=== PATIENT | male | born 1950 | race Caucasian/White ===

== ENCOUNTER 2019-05-29 01:14 | Outpatient (CLI) | payer MEDICARE, BC, SELFPAY | END 2019-05-29 01:34 | PROVIDERS: PCP Family Medicine; Visit Provider Family Medicine | DX: R69 Illness, unspecified (principal) | CPT/HCPCS: 36415; 80053; 80061; 83721; 84153; 85027 ==

== ENCOUNTER 2019-09-07 11:47 | Outpatient (CLI) | payer MEDICARE, BC, SELFPAY ==
[2019-09-07 09:40] LABS: HCT 45.1 % (40.0-50.0); HGB 15.6 g/dL (13.5-17.5); Mean Corp. HGB Concentration 34.6 g/dL (32.0-36.0); Mean Corpuscular Hemoglobin 33.5 pg (27.0-33.0); Mean Platelet Volume 9.3 fL (8.0-11.0); Platelet Count 223 x1000/uL (130-400); RBC 4.65 m/cumm (4.50-6.00); RBC Distribution Width 12.9 % (11.8-14.1); White Blood Cell Count 6.57 k/cumm (4.4-10.8)
[2019-09-07 10:27] LABS: ALT 26 U/L (16-63); AST 22 U/L (15-37); Albumin 3.9 g/dL (3.4-5.0); Alkaline Phosphatase 77 U/L (46-116); Anion Gap 9.2 mmol/L (3-11); BUN 10 mg/dL (7-18); Bilirubin, Total 0.6 mg/dL (0.2-1.0); CO2 28.8 mmol/L (21.0-32.0); CREATININE 0.92 mg/dL (0.70-1.30); Calcium 9.1 mg/dL (8.5-10.1); Calculated LDL 119 mg/dL; Chloride 102 mmol/L (98-107); Cholesterol 207 mg/dL (50-200); Glucose 99 mg/dL (70-100); HDL Cholesterol 58 mg/dL (40-60); Potassium 4.5 mmol/L (3.5-5.1); Sodium 140 mmol/L (136-145); Total Protein 7.7 g/dL (6.4-8.2); Triglyceride 153 mg/dL (30-150)
[2019-09-09 11:34] LABS: PSA, Screening 1.6 ng/ml (0-6.5)
== END 2019-09-07 12:07 ==
PROVIDERS: PCP Family Medicine; Visit Provider Family Medicine
DX: R03.0 Elevated blood-pressure reading, without diagnosis of hypertension (principal); Z12.5 Encounter for screening for malignant neoplasm of prostate; E78.89 Other lipoprotein metabolism disorders
CPT/HCPCS: 36415; 80053; 80061; 84153; 85027

== ENCOUNTER → 2020-05-25 13:00 | Outpatient (BNVA) | payer MEDICARE, BC, SELFPAY | PROVIDERS: PCP Family Medicine; Referring Provider Family Medicine; Visit Provider Nurse Practitioner Gerontology | DX: N40.0 Benign prostatic hyperplasia without lower urinary tract symptoms (principal) | CPT/HCPCS: 99204 ==

== ENCOUNTER 2020-05-25 13:45 | Outpatient (CLI) | payer MEDICARE, BC, SELFPAY ==
[2020-05-26 09:44] LABS: PSA, Screening 1.7 ng/mL (0.0-6.5)
== END 2020-05-25 14:05 ==
PROVIDERS: PCP Family Medicine; Visit Provider Nurse Practitioner Gerontology
DX: N40.0 Benign prostatic hyperplasia without lower urinary tract symptoms (principal); Z12.5 Encounter for screening for malignant neoplasm of prostate
CPT/HCPCS: 84153

== ENCOUNTER 2020-06-26 08:42 | Outpatient (CLI) | payer MEDICARE, BC, SELFPAY ==
[2020-06-29 17:42] LABS: SARS-CoV-2 RNA Undetected (Undetected); SARS-CoV-2 Specimen Source Nasopharynx
== END 2020-06-26 09:02 ==
PROVIDERS: PCP Family Medicine; Visit Provider Family Medicine
DX: Z11.59 Encounter for screening for other viral diseases (principal)
CPT/HCPCS: U0003

== ENCOUNTER → 2020-11-04 08:38 | Outpatient (BNVA) | payer MEDICARE, BC, SELFPAY | PROVIDERS: PCP Family Medicine; Referring Provider Family Medicine; Visit Provider Nurse Practitioner Gerontology | DX: N40.0 Benign prostatic hyperplasia without lower urinary tract symptoms (principal) | CPT/HCPCS: 99213 ==

== ENCOUNTER 2021-05-04 03:32 | Outpatient (CLI) | payer MEDICARE, BC, SELFPAY ==
[2021-05-04 13:27] LABS: ALT 27 U/L (16-63); AST 23 U/L (15-37); Albumin 3.5 g/dL (3.4-5.0); Alkaline Phosphatase 75 U/L (46-116); Anion Gap 11.8 mmol/L (3-11); BUN 9 mg/dL (7-18); Bilirubin, Total 0.4 mg/dL (0.2-1.0); CO2 24.2 mmol/L (21.0-32.0); CREATININE 0.8 mg/dL (0.70-1.30); Calcium 8.7 mg/dL (8.5-10.1); Chloride 104 mmol/L (98-107); Glucose 92 mg/dL (74-106); Potassium 4.2 mmol/L (3.5-5.1); Sodium 140 mmol/L (136-145); Total Protein 6.8 g/dL (6.4-8.2)
[2021-05-04 22:43] LABS: PSA, Screening 1.6 ng/mL (0.0-6.5)
== END 2021-05-04 03:33 | disposition home or self-care (01) ==
LOC: LOS 03:32
DX: N40.0 Benign prostatic hyperplasia without lower urinary tract symptoms (principal); Z12.5 Encounter for screening for malignant neoplasm of prostate; I10 Essential (primary) hypertension
CPT/HCPCS: 36415; 80053; 84153

== ENCOUNTER → 2021-05-10 09:22 | Outpatient (BNVA) | payer MEDICARE, BC, SELFPAY | PROVIDERS: Visit Provider Nurse Practitioner Gerontology | DX: N40.0 Benign prostatic hyperplasia without lower urinary tract symptoms (principal) | CPT/HCPCS: 99213 ==

== ENCOUNTER 2021-07-23 09:26 | Outpatient (CLI) | payer MEDICARE, BC, SELFPAY ==
--- NOTE | 2021-07-23 09:00 | DI.RAD_ITS ---
Exam(s) XR KNEE LT 3V AP,LAT,IRIS EXAM: XR KNEE LT 3V AP,LAT,IRIS CLINICAL HISTORY: knee pain TECHNIQUE: COMPARISON: CR LEFT KNEE 3 VIEW COMPLETE from 09/26/2012 FINDINGS: Four views were obtained. There is severe loss of the cartilaginous joint space of the medial tibiof emoral joint with subchondral sclerosis and deformity of the adjacent bones. There is mild medial abdalla bluxation the femur on the tibia. Otherwise cartilaginous joint spaces appear fairly well maintained. There are moderate marginal oste ophytes multiple sites. There is an incidental bipartite patella. There appears to be a moderate-si zed knee joint effusion. IMPRESSION: Severe DJD predominantly involving medial tibiofemoral joint. RADIATION DOSE DELIVERED: Total DLP
--- NOTE | 2021-07-23 09:00 | DI.RAD_ITS ---
Exam(s) XR KNEE RT 3V AP,LAT,IRIS EXAM: XR KNEE RT 3V AP,LAT,IRIS CLINICAL HISTORY: knee pain TECHNIQUE: COMPARISON: CR XR KNEE LT 3V AP,LAT,IRIS from 07/23/2021 FINDINGS: Four views were obtained. There is severe narrowing of the cartilaginous joint space of the medial t ibiofemoral joint with medial femoral subluxation and mild varus angulation of the knee. There is mi ld subchondral sclerosis of the adjacent bones at this site. There are mild marginal osteophytes of all 3 joints of the knee. There is a small knee joint effusio n seen on the lateral view. IMPRESSION: Severe DJD predominantly involving medial tibiofemoral joint. RADIATION DOSE DELIVERED: Total DLP
== END 2021-07-23 09:27 | disposition home or self-care (01) ==
LOC: DIORS 09:26
PROVIDERS: Visit Provider Student in an Organized Health Care Education/Training Program
DX: M17.11 Unilateral primary osteoarthritis, right knee; M17.12 Unilateral primary osteoarthritis, left knee; M25.561 Pain in right knee; M25.562 Pain in left knee
CPT/HCPCS: 73562; 99215

== ENCOUNTER 2021-11-09 03:05 | Outpatient (CLI) | payer MEDICARE, BC, SELFPAY ==
[2021-11-09 11:29] LABS: ALT 28 U/L (16-63); AST 24 U/L (15-37); Albumin 3.7 g/dL (3.4-5.0); Alkaline Phosphatase 72 U/L (46-116); Anion Gap 6.1 mmol/L (3-11); BUN 12 mg/dL (7-18); Bilirubin, Total 0.7 mg/dL (0.2-1.0); CO2 29.9 mmol/L (21.0-32.0); CREATININE 0.8 mg/dL (0.70-1.30); Calcium 9.3 mg/dL (8.5-10.1); Calculated LDL 117 mg/dL (<100); Chloride 100 mmol/L (98-107); Cholesterol 204 mg/dL (<200); Glucose 95 mg/dL (74-106); HDL Cholesterol 74 mg/dL (40-60); Potassium 4.7 mmol/L (3.5-5.1); Sodium 136 mmol/L (136-145); Total Protein 7.1 g/dL (6.4-8.2); Triglyceride 68 mg/dL (<150)
[2021-11-09 18:53] LABS: PSA, Screening 1.9 ng/mL (0.0-6.5)
== END 2021-11-09 03:06 | disposition home or self-care (01) ==
LOC: LBO 03:05
PROVIDERS: Nurse Practitioner Gerontology
DX: E78.2 Mixed hyperlipidemia (principal); R03.0 Elevated blood-pressure reading, without diagnosis of hypertension; N40.0 Benign prostatic hyperplasia without lower urinary tract symptoms; Z12.5 Encounter for screening for malignant neoplasm of prostate
CPT/HCPCS: 36415; 80053; 80061; 84153

== ENCOUNTER → 2021-11-11 10:16 | Outpatient (BNVA) | payer MEDICARE, BC, SELFPAY | PROVIDERS: Visit Provider Nurse Practitioner Gerontology | DX: N40.0 Benign prostatic hyperplasia without lower urinary tract symptoms (principal) | CPT/HCPCS: 99213 ==

== ENCOUNTER 2022-05-05 02:17 | Outpatient (CLI) | payer MEDICARE, BC, SELFPAY ==
[2022-05-05 22:58] LABS: PSA, Screening 1.8 ng/mL (<=6.5)
== END 2022-05-05 02:18 | disposition home or self-care (01) ==
LOC: LBO 02:17
PROVIDERS: Visit Provider Nurse Practitioner Gerontology
DX: N40.0 Benign prostatic hyperplasia without lower urinary tract symptoms (principal); Z12.5 Encounter for screening for malignant neoplasm of prostate
CPT/HCPCS: 36415; 84153

== ENCOUNTER → 2022-05-12 10:35 | Outpatient (BNVA) | payer MEDICARE, BC, SELFPAY | PROVIDERS: Visit Provider Nurse Practitioner Gerontology | DX: N40.0 Benign prostatic hyperplasia without lower urinary tract symptoms (principal); N42.89 Other specified disorders of prostate | CPT/HCPCS: 99213 ==

== ENCOUNTER 2022-11-08 02:04 | Outpatient (CLI) | payer MEDICARE, BC, SELFPAY ==
[2022-11-08 19:15] LABS: PSA, Screening 1.9 ng/mL (<=6.5)
== END 2022-11-08 02:05 | disposition home or self-care (01) ==
LOC: LBO 02:04
PROVIDERS: PCP Nurse Practitioner Family; Visit Provider Nurse Practitioner Gerontology
DX: N40.0 Benign prostatic hyperplasia without lower urinary tract symptoms (principal); N42.89 Other specified disorders of prostate; Z12.5 Encounter for screening for malignant neoplasm of prostate
CPT/HCPCS: 36415; 84153

== ENCOUNTER → 2022-11-15 10:28 | Outpatient (BNVA) | payer MEDICARE, BC, SELFPAY | PROVIDERS: PCP Nurse Practitioner Family; Referring Provider Nurse Practitioner Family; Visit Provider Nurse Practitioner Gerontology | DX: N40.0 Benign prostatic hyperplasia without lower urinary tract symptoms (principal) | CPT/HCPCS: 99213 ==

== ENCOUNTER 2023-05-11 01:11 | Outpatient (CLI) | payer MEDICARE, BC, SELFPAY ==
[2023-05-11 22:12] LABS: PSA, Screening 1.9 ng/mL (<=6.5)
== END 2023-05-11 01:12 | disposition home or self-care (01) ==
LOC: LBO 01:11
PROVIDERS: PCP Nurse Practitioner Family; Visit Provider Nurse Practitioner Gerontology
DX: N40.0 Benign prostatic hyperplasia without lower urinary tract symptoms (principal); Z12.5 Encounter for screening for malignant neoplasm of prostate
CPT/HCPCS: 36415; 84153

== ENCOUNTER → 2023-06-05 13:36 | Outpatient (BNVA) | payer MEDICARE, BC, SELFPAY | PROVIDERS: PCP Nurse Practitioner Family; Referring Provider Nurse Practitioner Family; Visit Provider Nurse Practitioner Gerontology | DX: N40.0 Benign prostatic hyperplasia without lower urinary tract symptoms (principal) | CPT/HCPCS: 99213 ==

== ENCOUNTER 2023-12-04 04:40 | Outpatient (CLI) | payer MEDICARE, BC, SELFPAY ==
[2023-12-04 08:37] LABS: Anion Gap 2.6 mmol/L (3-11); BUN 13 mg/dL (7-18); CO2 29.4 mmol/L (21.0-32.0); CREATININE 0.8 mg/dL (0.70-1.30); Chloride 100 mmol/L (98-107); Estimated GFR 92.29 (mL/min/1.73m2); Glucose 101 mg/dL (74-106); Potassium 4.3 mmol/L (3.5-5.1); Sodium 132 mmol/L (136-145)
[2023-12-04 17:56] LABS: PSA, Diagnostic 2.3 ng/mL (<=6.5)
== END 2023-12-04 04:41 | disposition home or self-care (01) ==
LOC: LBO 04:40
PROVIDERS: PCP Nurse Practitioner Family; Visit Provider Nurse Practitioner Gerontology
DX: N40.0 Benign prostatic hyperplasia without lower urinary tract symptoms (principal); R79.89 Other specified abnormal findings of blood chemistry; Z13.1 Encounter for screening for diabetes mellitus
CPT/HCPCS: 36415; 80048; 84153

== ENCOUNTER → 2023-12-07 02:30 | Outpatient (CLI) | payer MEDICARE, BC, SELFPAY ==
--- NOTE | 2023-12-07 12:43 | DI.US_ITS ---
Exam(s) US AAA SCREENING EXAM: US AAA SCREENING CLINICAL HISTORY: 5 year pack history SMOKER, SCREENING FOR AAA,Z87.891 COMPARISON: No exams were available for comparison FINDINGS: Abdominal Aorta: Proximal: 2.6 x 2.3 cm Mid: 2.1 x 2.3 cm Distal: 2.1 x 2.3 cm Iliac's: Right: 1.3 x 1.5 cm Left: 1.2 x 1.4 cm Atherosclerosis is present. IMPRESSION: No evidence of abdominal aortic aneurysm. DATA REPOSITORY:
== END ==
PROVIDERS: PCP Nurse Practitioner Family; Visit Provider Nurse Practitioner Family
DX: Z13.6 Encounter for screening for cardiovascular disorders (principal); Z87.891 Personal history of nicotine dependence
CPT/HCPCS: 76706

== ENCOUNTER → 2023-12-21 14:50 | Outpatient (BNVA) | payer MEDICARE, BC, SELFPAY | PROVIDERS: PCP Nurse Practitioner Family; Visit Provider Nurse Practitioner Gerontology | DX: N40.0 Benign prostatic hyperplasia without lower urinary tract symptoms (principal); R68.89 Other general symptoms and signs | CPT/HCPCS: 51798; 99213 ==

== ENCOUNTER → 2024-02-07 12:59 | Outpatient (CLI) | payer MEDICARE, BC, SELFPAY ==
--- NOTE | 2024-02-07 | DI.RAD_ITS ---
Exam(s) XR SHOULDER RT COMPLETE 2+V EXAM: XR SHOULDER RT COMPLETE 2+V CLINICAL HISTORY: PAIN IN RT SHOULDER-M25.511. TECHNIQUE: 2D digital imaging was performed of the right shoulder. Five images were obtained. AP, Grashey, Y-view and axillary views were obtained. COMPARISON: No exams were available for comparison FINDINGS: BONES: No acute fracture is present. No bony destructive lesion is seen. JOINTS: No dislocation present. There are mild degenerative changes seen at the glenohumeral joint. SOFT TISSUE: The visualized lungs are clear. IMPRESSION: Degenerative changes seen in the right shoulder. DATA REPOSITORY: RADIATION DOSE DELIVERED:
== END ==
PROVIDERS: PCP Nurse Practitioner Family; Visit Provider Physician Assistant Medical
DX: M25.511 Pain in right shoulder (principal)
CPT/HCPCS: 73030

== ENCOUNTER 2024-05-27 10:57 | Outpatient (CLI) | payer MEDICARE, BC, SELFPAY ==
--- NOTE | 2024-05-27 09:00 | DI.RAD_ITS ---
Exam(s) XR KNEE LT 1V XR STANDING ALIGNMENT XR KNEE RT 1V EXAM: XR STANDING ALIGNMENT and XR knee 1 V bilateral CLINICAL HISTORY: TKR planning. TECHNIQUE: 2D digital imaging was performed. Six images were obtained. COMPARISON: CR XR KNEE RT 3V AP,LAT,IRIS from 07/23/2021 CR XR KNEE LT 3V AP,LAT,IRIS from 07/23/2021 CR XR KNEE RT 1V from 05/27/2024 CR XR KNEE LT 1V from 05/27/2024 FINDINGS: BONES: The hips are well maintained. In the right knee there is marked narrowing of the medial femor al tibial joint. Osteophytes are seen both medially and laterally and in the posterior patella. No significant joint effusion is seen. There is chondrocalcinosis in the femoral tibial joint. In the left knee, there is marked narrowing of the medial femoral tibial joint. There osteophytes involving all 3 joint compartments. There is chondrocalcinosis seen in the femoral tibial joint. There is a small joint effusion. There is a genu varus deformity. The ankles are well maintained.There is no s ignificant leg length discrepancy. SOFT TISSUE: Vascular calcifications are present. IMPRESSION: Marked degenerative changes seen in the knees. DATA REPOSITORY: RADIATION DOSE DELIVERED:
== END 2024-05-27 10:58 | disposition home or self-care (01) ==
LOC: DIORS 10:57
PROVIDERS: PCP Nurse Practitioner Family; Referring Provider Nurse Practitioner Family; Visit Provider Student in an Organized Health Care Education/Training Program
DX: M17.12 Unilateral primary osteoarthritis, left knee; M17.11 Unilateral primary osteoarthritis, right knee
CPT/HCPCS: 99213; 73560; 77073

== ENCOUNTER 2024-06-13 02:40 | Outpatient (CLI) | payer MEDICARE, BC, SELFPAY ==
[2024-06-13 19:01] LABS: PSA, Diagnostic 2.2 ng/mL (<=6.5)
== END 2024-06-13 02:41 | disposition home or self-care (01) ==
LOC: LOS 02:40
PROVIDERS: PCP Nurse Practitioner Family; Visit Provider Nurse Practitioner Gerontology
DX: N40.0 Benign prostatic hyperplasia without lower urinary tract symptoms (principal); R68.89 Other general symptoms and signs
CPT/HCPCS: 36415; 84153

== ENCOUNTER 2024-09-05 03:04 | Outpatient (CLI) | payer MEDICARE, BC, SELFPAY ==
[2024-09-05 11:21] LABS: HCT 42.3 % (40.0-50.0); HGB 14.5 g/dL (13.5-17.5); MCHC 34.3 % (32.0-36.0); MCV 96 fL (80-95); MPV 8.8 fL (8.0-11.0); Platelet Count 273 10^3/uL (130-400); RBC 4.39 10^6/uL (4.36-5.78); RDW 12.5 % (11.8-14.1); RDW-SD 44.6 fL; WBC 6.05 10^3/uL (4.4-10.8)
[2024-09-05 11:48] LABS: Anion Gap 7.7 mmol/L (3-11); BUN 13 mg/dL (7-18); CO2 27.3 mmol/L (21.0-32.0); CREATININE 0.8 mg/dL (0.70-1.30); Calcium 9.5 mg/dL (8.5-10.1); Chloride 104 mmol/L (98-107); Estimated GFR 92.29 (mL/min/1.73m2); Glucose 100 mg/dL (74-106); Potassium 4.3 mmol/L (3.5-5.1); Sodium 139 mmol/L (136-145)
== END 2024-09-05 03:05 | disposition home or self-care (01) ==
LOC: LBO 03:04
PROVIDERS: PCP Nurse Practitioner Family; Visit Provider Student in an Organized Health Care Education/Training Program
DX: M17.12 Unilateral primary osteoarthritis, left knee (principal); Z01.818 Encounter for other preprocedural examination
CPT/HCPCS: 36415; 80048; 85027

== ENCOUNTER 2024-09-18 09:54 | Day surgery (SDC) | payer MEDICARE, BC, SELFPAY ==
[2024-09-18] VITALS (22 sets, daily range): BP systolic 144–187; BP diastolic 57–162; PULSE 58–76; RESP 12–20; TEMP 36–36.5; O2SAT 97–100; BMI 23.6
--- NOTE | 2024-09-18 07:35 | W.PM.DSUDISC ---
Date of service: 09/18/24 Time of Service: 07:35 Discharge Plan Disposition Patient Disposition: Home Condition: Good Discharge Details Reason For Visit: L TKR Attending Provider: Molina Colin Primary Care Provider: Amari Chambers Home Meds and New Rx's Prescriptions: New celecoxib 200 mg capsule 200 mg PO BID Qty: 60 0RF aspirin 81 mg tablet,delayed release (DR/EC) 81 mg PO BID Qty: 60 0RF acetaminophen 500 mg tablet 1,000 mg PO TID Qty: 90 3RF pantoprazole 40 mg tablet,delayed release (DR/EC) 40 mg PO DAILY Qty: 30 0RF dexamethasone 4 mg tablet 4 mg PO DAILY Qty: 2 0RF gabapentin 300 mg capsule 300 mg PO QHS Qty: 14 0RF oxycodone 5 mg tablet 5 mg PO Q4H MDD 6 tabs PRN (Reason: pain) Qty: 20 0RF Discontinued ibuprofen [Advil] 200 mg tablet 200 mg PO Q8H PRN Discharge Instructions Additional Instructions: Total Knee Discharge Instructions Activity: The most important activity is to walk and to work on gentle motion (both flexion and extension). You should try to take short walks a few times a day. It is important that when resting you work on keeping the knee straight. Avoid putting a pillow behind the knee as this will encourage flexion. Work on range of motion exercises as provided by Physical Therapy. - Start outpatient physical therapy within 2 weeks. - You should wear the AVELINO hose on both legs for 2 weeks. You may remove these at night. You may also use any compression sock in place of the AVELINO hose. - Utilize [employer] to review exercises, see videos on exercises and obtain basic information pertaining to your surgery and your recovery. Dressing: Remove the Yan wrap by 2 days after your surgery and put on the AVELINO stocking given to you from the hospital. Keep the surgical dressing (underneath the YAN wrap) in place for at least one week. After the first week it may be removed and replaced with light gauze and tape or nothing. The wound and dressing may get wet after 3 days but avoid soaking the dressing or otherwise it will need to be changed. Many people prefer covering the dressing with cling wrap (saran wrap) to minimize it from getting soaked. If it gets wet, just pat dry. If it starts to peel off then it will need to be changed. Medications: - You should take Tylenol and anti-inflammatory Celebrex as your primary pain control medications. If the Celebrex is too expensive or not covered, please call the office for another alternative (Advil/Ibuprofen or Naproxen/Aleve) - You have been prescribed a stronger pain medication Oxycodone for breakthrough pain, take as needed as prescribed. - You have also been prescribed a stomach acid reduction agent Pantoprozole to help reduce stomach acid and reflux. - You have been prescribed Gabapentin to take at night for restlessness and nerve pain. - You will be taking Aspirin 81mg twice a day for DVT prevention unless instructed otherwise. - You have also been prescribed Decadron to take to control post-operative nausea and pain. You will start this tomorrow. - If you have constipation you should take Colace or Miralax (both [id number]). It takes most people 3-4 days to have a bowel movement. Follow-up: 2 weeks If you have any acute concerns or questions, please do not hesitate to contact the office at [phone]. You may contact Dr. Colin with any questions after hours through the hospital at [phone] or on his cell phone at [phone]. Referrals: Molina Colin MD [ [facility] ST[facility]FF PHYSICIAN] - Equipment/Supplies: Walker Activity:: Activity as Tolerated Shower/Bathe:: 72 hours Diet:: As Tolerated Discharge Orders Discharge Orders: Discharge Order (Routine); Ordered 09/18/24 Ordered By: Quincy Méndez DS: Diagnosis Discharge Diagnosis (1) Osteoarthritis of left knee: Status: Acute
[2024-09-18] MEDS: Lactated Ringers 1,000 ML 80 ML IV (10:34)
[2024-09-18] MEDS: Acetaminophen 500 MG TAB 1000 MG PO (10:52)
[2024-09-18] MEDS: Gabapentin 300 MG CAP PO (10:52)
[2024-09-18] MEDS: Celecoxib 200 MG CAP 400 MG PO (10:52)
--- NOTE | 2024-09-18 11:01 | W.ANESPRE ---
General Info Date of Service Date Performed: 09/18/24 Height: 5 ft 7 in Weight: 68.5 kg Body Mass Index (BMI): 23.6 Surgical Procedure: Operation Date: 09/18/24 12:55 Proposed Procedure Side Surgeon p Knee Total Arthroplasty w/OrthAlign, Cementless CR Left Molina Colin MD Meds Allergies and Home Medications Allergies Allergy/AdvReac Type Severity Reaction Status Date / Time No Known Allergies Allergy Verified 09/18/24 10:49 Home Medication ?Medication ?Instructions ?Recorded acetaminophen 500 mg tablet 1,000 mg (2 x 500 mg) PO TID #90 09/18/24 tabs aspirin 81 mg tablet,delayed 81 mg PO BID #60 tabs 09/18/24 release celecoxib 200 mg capsule 200 mg PO BID #60 caps 09/18/24 dexamethasone 4 mg tablet 4 mg PO DAILY #2 tabs 09/18/24 gabapentin 300 mg capsule 300 mg PO QHS #14 caps 09/18/24 oxycodone 5 mg tablet 5 mg PO Q4H PRN pain #20 tabs 09/18/24 pantoprazole 40 mg tablet,delayed 40 mg PO DAILY #30 tabs 09/18/24 release Current Visit Medications: Current Medications Generic Name Dose Route Start Last Admin Trade Name Freq PRN Reason Stop Dose Admin Acetaminophen 1,000 mg 09/18/24 06:00 09/18/24 10:52 Acetaminophen 500 Mg Tab PO 09/18/24 23:59 1,000 mg PREOP SONYA Administration Acetaminophen 1,000 mg 09/18/24 07:34 Acetaminophen 500 Mg Tab PO 10/18/24 08:29 TID PRN Analgesia Celecoxib 400 mg 09/18/24 06:00 09/18/24 10:52 Celecoxib 200 Mg Cap PO 09/18/24 23:59 400 mg PREOP SONYA Administration Docusate Sodium 100 mg 09/18/24 07:34 Docusate Sodium 100 Mg Cap PO 10/18/24 07:33 BID PRN PRN Constipation Droperidol 0.625 mg 09/18/24 08:58 Droperidol 5 Mg/2 Ml Vial IVP 10/18/24 08:57 DIRECTED PRN Nausea Ephedrine Sulfate 0 mg 09/18/24 08:58 Ephedrine 25 Mg/5 Ml Syringe IVP 10/18/24 08:57 DIRECTED PRN Fentanyl 0 mcg 10/23/24 08:58 Fentanyl 100 Mcg/2 Ml Vial IVP 10/18/24 08:57 DIRECTED PRN Gabapentin 300 mg 09/18/24 06:00 09/18/24 10:52 Gabapentin 300 Mg Cap PO 09/18/24 23:59 300 mg PREOP SONYA Administration Hydromorphone HCl 0 mg 09/18/24 08:58 Hydromorphone 1 Mg/Ml Syr IVP 10/18/24 08:57 DIRECTED PRN Ringer's Solution 1,000 mls @ 80 mls/hr 09/18/24 06:00 09/18/24 10:34 IV 09/18/24 23:59 80 mls/hr INFUSION OSNYA Administration Tranexamic Acid/Sodium Chloride 1,000 mg in 100 mls @ 600 mls/hr 09/18/24 10:45 IVPB 10/18/24 10:44 PREOP SONYA Cefazolin Sodium/Dextrose 2 gm in 50 mls @ 100 mls/hr 09/18/24 10:45 Ancef Duplex IVPB 10/18/24 10:44 PREOP SNOYA IV Miscellaneous Supplies 1 each 09/18/24 06:00 Iv Access IV 09/18/24 23:59 DIRECTED SONYA Naloxone HCl 0 mg 09/18/24 08:58 Naloxone 0.4 Mg/Ml Vial IVP 10/18/24 08:57 PRN PRN Ondansetron HCl 4 mg 09/18/24 07:34 Ondansetron 4 Mg/2 Ml Vial IVP 10/18/24 07:33 Q6H PRN PRN Nausea Oxycodone HCl 0 mg 09/18/24 07:34 Oxycodone 5 Mg Tab PO 10/18/24 07:33 Q3H PRN PRN Pain Polyethylene Glycol 17 gm 09/18/24 07:34 Polyethylene Glycol 3350 17 Gm Packet PO 10/18/24 07:33 BID PRN PRN Constipation Sodium Chloride 0 ml 09/18/24 06:00 Normal Saline Flush 10 Ml Syr IV 09/18/24 23:59 PRN PRN Sodium Chloride 0 ml 09/18/24 06:00 Normal Saline 10 Ml Vial IJ 09/18/24 23:59 DIRECTED PRN Sterile Water 0 ml 09/18/24 06:00 Water,Injection,Sterile 10 Ml Vial IJ 09/18/24 23:59 DIRECTED PRN PFSH Active Problems Active Problems: Problem Status Onset Code History of total left knee replacement Acute 09/18/24 Z96.652 Abnormal digital rectal exam Acute R68.89 Osteoarthritis of right knee Acute M17.11 Encounter for annual physical exam Acute Z00.00 BPH w/o urinary obs/LUTS Acute N40.0 Acquired trigger finger Acute 10/26/06 M65.30 Medical History Medical History Elevated BP without diagnosis of hypertension Osteoarthritis of knee Generalized osteoarthrosis (10/26/09) mild DJD left knee Malignant neoplasm of skin Surgical History Surgical History History of bilateral inguinal hernia repair History of skin surgery Skin Cancer Removal (~1995) Harish's surgery for BCCA Repair of inguinal hernia (~2006) B/L Colonoscopy - MAC 2010;NEG Tobacco Smoking/Tobacco Use Status: Former Tobacco Use Passive smoking exposure: No Second hand exposure: Yes Alcohol Alcohol Intake: current Alcohol intake frequency: a few times a week Alcohol type: beer Substance Use Substance use: Never Substance use type: former substance user Vital Signs and Lab Results Vital Signs Most Recent Vital Signs in EMR: Most Recent Vital Signs Temp Pulse Resp BP Pulse Ox 36 C L 62 16 182/85 H 98 09/18/24 10:36 09/18/24 10:36 09/18/24 10:36 09/18/24 10:36 09/18/24 10:36 Lab Results Blood Type / Crossmatch: No Data to Display Complete Blood Count: White Blood Count 6.05 10^3/uL (4.4-10.8) 09/05/24 11:14 Red Blood Count 4.39 10^6/uL (4.36-5.78) 09/05/24 11:14 Hemoglobin 14.5 g/dL (13.5-17.5) 09/05/24 11:14 Hematocrit 42.3 % (40.0-50.0) 09/05/24 11:14 Platelet Count 273 10^3/uL (130-400) 09/05/24 11:14 Complete Metabolic Panel: Sodium 139 mmol/L (136-145) 09/05/24 11:14 Potassium 4.3 mmol/L (3.5-5.1) 09/05/24 11:14 Chloride 104 mmol/L (98-107) 09/05/24 11:14 Carbon Dioxide 27.3 mmol/L (21.0-32.0) 09/05/24 11:14 BUN 13 mg/dL (7-18) 09/05/24 11:14 Creatinine 0.8 mg/dL (0.70-1.30) 09/05/24 11:14 Est GFR (CKD-EPI 2020) 92.29 (mL/min/1.73m2) 09/05/24 11:14 Calcium 9.5 mg/dL (8.5-10.1) 09/05/24 11:14 Glucose 100 mg/dL (74-106) 09/05/24 11:14 Liver Function Panel: No Data to Display Coagulation Panel: No Data to Display Cardiac Panel: No Data to Display Arterial Blood Gas: No Data to Display Venous Blood Gas: No Data to Display Pancreas Panel: No Data to Display Thyroid Panel: No Data to Display Infectious Disease: No Data to Display Blood Cultures: No Data to Display Toxicology Panel: No Data to Display Anesthesia Assessment and Plan Anesthesia History Personal History: No History of Anesthesia Complications Family History: No Family History of Anesthesia Complications Exercise Tolerance Exercise Tolerance: Metabolic Equivalents>4 Pertinent Negatives Pertinent Negatives: No Symptoms of GERD, No Major Cardiovascular Symptoms or Complaints, No Major Pulmonary Symptoms or Complaints and No History of CVA/TIA Cardiac & Pulmonary Exam Cardiac Exam: Normal S1/S2 Heart Sounds Pulmonary Exam: Clear Bilateral Breath Sounds Implantable Cardiac Device Does patient have a Pacemaker or an ICD?: No Airway Exam Known Difficult Airway: No Mallampati Class: 2 Mouth Opening: Normal (> 3cm) Thyromental Distance: Greater than 3 cm Neck Range of Motion: Full ROM Neck Circumference: Normal Teeth Condition: Normal Dentition ASA Classification ASA Score: ASA 2 Emergency Case?: No NPO Status NPO Status: NPO Clears >2 hours, Solids >8 hours Anesthesia Plan Resuscitation Status: Full Code Anesthesia Technique: Spinal Anesthesia Airway Planned: Natural Airway Pain Management: Surgeon and patient request nerve block Monitors Used: Standard Monitors and SedLine Preoperative Comments:: Plan: Left adductor canal block, spinal anesthetic, general w/ natural airway. Adequate IV access, sedline
[2024-09-18] MEDS: ceFAZolin 2 GM/50 ML BAG IVPB (12:24)
[2024-09-18] MEDS: TRANEXAMIC ACID/SOD. CHL. 1,000 MG/100 ML BAG 600 MG IVPB (12:33)
--- NOTE | 2024-09-18 12:48 | W.ANESNERVE ---
Nerve Block Single Injection Procedure Date and Time Date Performed: 09/18/24 Procedure Start: 12:05 Location Where Procedure Performed Procedure Location: Day Surgery Unit Reason Performed: Postoperative Analgesia Requesting Provider: Molina Colin Timeout Performed Timeout Performed: Yes Monitoring Used ECG, Blood Pressure, SpO2, ETCO2 and See EMR for corresponding vital signs Sterility Sterility: Hand Hygiene, Surgical Cap, Surgical Mask, Sterile Gloves, Sterile Drape/Sheet, Eye Protection and Chlorhexidine Sedation Given During Procedure Sedation Given (Indicate Dose Given): No Sedation given Patient Mental Status Patient Mental Status: Awake Nerve Block 1st Nerve Block: Laterality: Left Block Type: Adductor Canal Ultrasound Image Saved?: Yes Needle / Catheter Used: 100mm SonoPlex II Local Anesthetic Bolus (Indicate Dose Given): Lidocaine used for local infiltration of skin, Injected in 3-5ml increments after negative blood aspiration and Bupivacaine 0.25% Dose:: 10ml Additives (Indicate Dose Given): None Ultrasound: Sterile probe cover and gel used Nerve Stimulator: Supplement to Ultrasound use and No twitch or parasthesia noted < 0.5 mA Paresthesia: None Procedure Tolerated: No Complications and Patient tolerated well Procedure Outcome: Successful Performed By: Viral Moreno Supervised By: Patti Larson
--- NOTE | 2024-09-18 15:16 | W.ANESPOSTOP ---
Postoperative Evaluation Date, Time and Location Date Performed: 09/18/24 Time Performed: 14:45 Patient Location: PACU Vital Signs Most Recent Imported Vital Signs: Most Recent Vital Signs Temp Pulse Resp BP Pulse Ox 36.5 C 62 16 181/94 H 99 09/18/24 15:02 09/18/24 15:02 09/18/24 15:02 09/18/24 15:02 09/18/24 15:02 Pain Score Most Recent Pain Score: Most Recent Pain Score Pain Level 3 09/18/24 14:59 Assessment Mental Status: Awake (Alert & Oriented to Patient Baseline) Airway and Respiratory Function: Patent airway with normal (patient baseline) respiratory exam Cardiovascular Function: Hemodynamically Stable Hydration Status: Adequately Hydrated Nausea & Vomiting: No Nausea or Vomiting Pain: Pain is tolerable per patient Peripheral Nerve Block: Regional nerve block not resolved at time of post operative discharge
--- NOTE | 2024-09-18 16:05 | IN_ITS ---
PT Notes Visit Reasons: L TKR Physical Therapy Day Surgery Initial Evaluation Date: 09/18/2024 Referring Doctor: WENDIE Sinclair PT Orders: PT CONSULT: S/P Ortho Surgery Precautions: WBAT on the R LE with AD. Patient Profile/Admitting Diagnosis: Daniel is a 73-year-old male with degenerative joint disease of the left knee and is status post left total knee arthroplasty on postoperative day 0. PMHX: Medical History (Updated 12/21/23 @ 15:18 by Esmer Jimenez DNP) Elevated BP without diagnosis of hypertension Osteoarthritis of knee Generalized osteoarthrosis (10/26/09) mild DJD left knee Malignant neoplasm of skin Surgical History (Updated 12/01/23 @ 09:26 by Amari Larson NP) History of bilateral inguinal hernia repair History of skin surgery Skin Cancer Removal (~1995) Harish's surgery for BCCA Repair of inguinal hernia (~2006) B/L Colonoscopy - MAC 2010;NEG Social History/Home Situation: Lives with in a private home with 2 steps to enter. Has a flight of steps to the bedroom of the house with the spangler on both sides that patient can hold onto for support. Equipment Owned/DME: [facility] Subjective: Reported mild ache in the outer side of L knee with weight bearing Objective: General Observation: Resting in bed. SOLITARIO wraps to right LE. Cryocuff to left knee. Geovanna present in room throughout session. Mental Status: A and o x 4 Pain: 2-3/10 at rest in the L knee, 1/10 with movement ROM: Left Lower Extremity: Hip flexion WFL. Hip abduction WFL. Knee flexion 0-100 degrees. Ankle dorsiflexion WFL. Ankle plantarflexion WFL. Right Lower Extremity: Hip flexion WFL. Hip abduction WFL. Knee flexion WFL. Ankle dorsiflexion WFL. Ankle plantarflexion WFL. Strength: Left Lower Extremity: Hip flexors 5/5. Hip abductors 5/5. Knee flexors 3-/5. Knee extensors 4-/5. Ankle dorsiflexors 5/5. Ankle plantarflexors 5/5. right Lower Extremity:Hip flexors 5/5. Hip abductors 5/5. Knee flexors 5/5. Knee extensors 5/5. Ankle dorsiflexors 5/5. Ankle plantarflexors 5/5. Sensation: Intact as pain and light pressure in B LE except for sole of L foot which was numb Bed Mobility/Transfers: Minimal cueing provided for use of B hands as needed for support, movement sequence, AD management, and posture to reduce fall risk and minimize pain report Supine to sit stand by assist Sit to stand contact guard assist with FWW Stand to sit stand by assist with FWW Bed to chair stand by assist with FWW Gait: Facilitate safe and correct performance of level surface ambulation covering a distance of 150 feet with step to heel-toe gait pattern requiring only standby assist and minimal verbal cueing for limb advancement, AD management, and posture to minimize pain report and reduce fall risk. Reported numbness in the sole of left foot that did not cause any safety issues during mobility performance. Stairs: Guided patient with safe and correct negotiation of 2 x 6 inch steps and of 3 x 6 inch steps while holding on to both rails with step to gait pattern requiring only minimal verbal cueing for increased knee flexion on the left during each ascent, hand placement, movement sequence, and posture to minimize pain report and reduce fall risk Balance: Static Sitting: Normal Dynamic Sitting: Normal Static Standing: Fair Dynamic Standing: Fair Special Tests: Mobility Limitations Standardized Measure [facility] AM-PAC 6 clicks Basic Mobility Inpatient Short Form: Raw Score: 23 CMS Score: 11% deficit Informed Consent/Education: Patient instructed in purpose of PT consult. Packet containing TKA exercise protocol has been given to patient. Education and training on initial set of exercises that can be done at home have been completed with patient. Trained patient with correct performance of exercises below to maximize motor control, joint flexibility, soft tissue extensibility of the [] knee musculature: Access Code: [email or web address] URL: [email or web address] Date: 09/18/2024 Prepared by: Charisma Wisdom Exercises - Supine Quad Set - 1 x daily - 7 x weekly - 1 sets - 10 reps - 5 hold - Supine Heel Slide - 1 x daily - 7 x weekly - 1 sets - 10 reps - 5 hold - Supine Ankle Pumps - 1 x daily - 7 x weekly - 1 sets - 10 reps - 5 hold - Small Range Straight Leg Raise - 1 x daily - 7 x weekly - 1 sets - 10 reps - 5 hold - Seated March - 1 x daily - 7 x weekly - 1 sets - 10 reps - 5 hold Assessment: Patient requires the use of a front wheeled walker for mobility ADL performance to maximize independence and reduce fall risk. Patient presents with clinical signs and symptoms consistent with current/admitting diagnoses that have resulted to mobility limitations, gait instability, generalized weakness, and impairment of motor control as demonstrated by the following impairment level findings: 1. Decreased strength to left knee major muscle groups 2. Impaired standing balance 3. Limitation of joint range of motion in left knee Impairments are contributing to the following functional limitations: 1. Inability to safely ambulate without assistive device 2. Increase completion time for mobility ADL performance 3. Increased fall risk Patient is assessed as a 99259 moderate complexity based on the following: History: 73-year-old female with impairment level findings, functional limitations, and past medical history as indicated above Examination: Demonstrable impairment in strength, balance, and mobility level with underlying impairments and functional limitations as documented above Presentation: Evolving Decision Makin moderate complexity Goals: N/A. PT evaluation and 1-2 treatment sessions only for functional mobility training using recommended AD and for HEP instruction. Plan of Care/Treatment Plan: N/A. PT evaluation and 1-2 treatment session only for functional mobility training using recommended AD and for HEP instruction. DISCHARGE RECOMMENDATIONS: Home when medically cleared by orthopedic surgeon. Recommend outpatient PT services in order to optimize functional mobility outcomes and facilitate return to independent community ambulation without an assistive device. TREATMENT CODE/TIME: 12396 x 20 minutes for 1 unit, 93887 x 11 minutes for 1 unit (16: 0 5?16: 36). Thank you for the opportunity to participate in the care of this patient. Please sign an return this page within 30 days if you agree with the above POC. Thank you! Physician Signature Date [facility] Charisma Wisdom PT, DPT, CLT [facility] [place], [place]
--- NOTE | 2024-09-18 16:25 | W.ANESPOSTOP ---
Postoperative Evaluation Date, Time and Location Date Performed: 09/18/24 Time Performed: 16:15 Patient Location: Day Surgery Unit Vital Signs Most Recent Imported Vital Signs: Most Recent Vital Signs Temp Pulse Resp BP Pulse Ox 36.1 C L 59 L 16 181/75 H 98 09/18/24 15:45 09/18/24 15:45 09/18/24 15:45 09/18/24 15:45 09/18/24 15:45 Most Recent Vital Signs Temp Pulse Resp BP Pulse Ox 36.5 C 62 16 181/94 H 99 09/18/24 15:02 09/18/24 15:02 09/18/24 15:02 09/18/24 15:02 09/18/24 15:02 Pain Score Most Recent Pain Score: Most Recent Pain Score Pain Level 3 09/18/24 15:45 Assessment Mental Status: Awake (Alert & Oriented to Patient Baseline) Airway and Respiratory Function: Patent airway with normal (patient baseline) respiratory exam Cardiovascular Function: Hemodynamically Stable Hydration Status: Adequately Hydrated Nausea & Vomiting: No Nausea or Vomiting Pain: Pain is tolerable per patient Peripheral Nerve Block: Patient did not receive a nerve block
--- NOTE | 2024-09-18 17:51 | W.PM.OP ---
Date of service: 09/18/24 Time of Service: 12:30 Operative Note Operative Note PRE-OP DIAGNOSIS: Left Knee Osteoarthritis POST-OP DIAGNOSIS: same PROCEDURE: Left Total Knee Replacement with Intraoperative Navigation SURGEON: Molina Colin MOISTURE METER OPERATOR: Jaime Méndez ANESTHESIA TYPE: Spinal Refer to Anesthesia Record ESTIMATED BLOOD LOSS: 100 PATHOLOGY: none sent TOURNIQUET TIME: 0 COMPLICATIONS: None Patient was transported to: PACU Patient's condition: stable Implants: 1. Depuy Attune Cementless Cruciate Retaining Femoral Component, Size 7 2. Depuy Attune Cementless Fixed Bearing Tibial Component, Size 6 3. Depuy Attune 7x10 CR/FB Poly 4. Depuy Attune Patellar Component, Size 35 Indications: I have seen Daniel in clinic for symptoms of LEFT knee arthritis, confirmed with radiographic findings. He has exhausted nonoperative methods and was having significant limitations in daily function and desired better function and less pain. I discussed the technical details of a knee replacement. I explained the risks of the procedure to include, but not limited to, bleeding, infection, pain, stiffness, fracture, damage to nerves and vessels, damage to muscles and tendons, loosening, need for repeat procedure, blood clot and cardiopulmonary demise. Despite these risks, Daniel elected to proceed. Findings: There was significant signs of arthritis throughout the knee, most notably medially where there was a posterior medial slope to the tibia. 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 Procedure Description: Daniel was greeted in the preoperative holding area where the correct side was identified and marked. The consent was reviewed with the patient and signed. The history and physical was updated. All questions were answered. Preoperative medications were administered: Acetaminophen 1000mg, Celebrex 400mg, and Gabapentin 300mg. An adductor canal block was then administered by the anesthesia team in the DSU. Daniel was taken back to the operating room. A spinal anesthestic was then administered. The patient was placed into the supine position on the operating room table. A nonsterile tourniquet was placed high onto the leg. Posts were placed for positioning during the procedure. All bony prominences were well padded. Prophylactic antibiotics in the form of Cefazolin were administered. 1g of Tranxemic Acid was given intravenously within 30 minutes of incision. The left leg was then prepped with Chloraprep and draped in a standard fashion with impervious stockinette. A second prep with Chloraprep was performed prior to application of Iodine impregnated skin protection. A timeout to confirm correct identity, side and site, procedure, allergies, anesthesia, and medical concerns was performed. With the knee in some flexion, a midline incision was made overlying the knee. Full thickness skin flaps were raised once the extensor mechanism was encountered. These were raised medially and laterally. Any bleeding was controlled with electrocautery. Once the extensor mechanism was fully exposed, a medial parapatellar arthrotomy was performed in a flexed position. All bleeding from the arthrotomy and the geniculate arteries was coagulated. A medial subperiosteal peel was performed with electrocautery to the midcoronal plane. Due to the significant varus deformity the entire medial tibial plateau was exposed. The fat pad was removed while keeping the patellar tendon protected. It was apparent at this point that he had a mobile bipartite patella with a fairly large superolateral fragment. This was not debrided or further evaluated. The anterior distal femur synovium was removed for later visualization. The ACL and PCL were resected and the anterior horn of the lateral meniscus was transected. The knee was then flexed with the patella everted. Large osteophytes from the tibia were removed. Large osteophytes from the femur were removed. A single starting pin was then placed 1cm anterior to the PCL insertion and the notch in the direction of the femoral head. The OrthoAlign device was applied over the pin. It was oriented to be in line with the epicondylar axis and the trochlear groove. It was then pinned into place. The navigation computer was then turned on and calibrated. The distal femur cut was set at 1 degrees varus and 3.5 degrees flexion. The distal femur cutting guide then was positioned for a 9mm cut. The distal femur was cut with an oscillating saw while protecting the soft tissues. The tibia was then addressed. The OrthoAlign device was placed over the tibial tubercle and medial tibia and secured into position. Once again, OrthoAlign was calibrated and then set for a 2 degree varus cut and 5.5 degrees of posterior slope. With this locked into position, the cut thickness stylus was used to assess cut thickness. The medial side, most involved side, was set for a 2mm cut. This was then held in position and pinned into place with 2 additional pins and a cross pin for stability. The medial and lateral collateral ligaments were protected and the cut was performed. With this completed, it was assessed and noted to be of appropriate dimensions. The guide and OrthoAlign was removed. A spacer block was inserted and the knee was brought into extension to ensure enough space was present. . The Orthoalign gap balancing device was then placed in extension. This was used to ensure that the ligaments were properly balanced with up to 2 to 3 mm laxity laterally compared medially. The extension gap was measured as 22mm. Osteophytes around the medial and posterior medial tibia were removed. The gap was more balanced after doing this with a total gap of about 23 mm. The knee was then brought into 90 degrees of flexion and the ligament defect cutter was once again placed. Under the same amount of force the flexion gap was measured. The Attune specific jig was placed and the flexion gap was made to match the extension gap. The femur was then sized as a size 7. The 4-in-1 cutting guide was the placed. An fab wing was used to confirm appropriate position of the anterior cut to avoid notching. This cutting guide was ensured to be flush on the cut surface and then pinned into place with headed pins. While protecting the soft tissues, quad tendon, and collateral ligaments, the anterior and posterior cuts were performed with a saw. The central two pins were removed and the posterior and anterior chamfers were cut next. The notch-cutting guide was placed. This was pinned to lateralize the femoral component as much as possible while keeping it flush on the cut surface. This was then pinned into position. A saw was used to make the notch cut. A rasp smoothed the cut surfaces. The medial and lateral menisci were removed. A trial femoral component was then inserted, impacted down to the cut surfaces, and the lug holes were drilled. A provisional trial tibial component was placed and the knee was brought through range of motion. There was noted to be excellent extension and flexion. There was no significant instability. The patella was tracking without thumbs. A size 10mm polyethylene component provided the best range of motion and stability with less than 2mm gapping with medial and lateral stress and full extension without significant hyperextension. The tibial cut surface was fully exposed. The tibia was then sized as a 6. The tibia had been previously marked during trialing to correspond to the center of the tibial component to help with rotation. The trial was aligned to this jaime, approximately rotated to the medial 1/3rd of the tibial tubercle. The trial was pinned into place. The tibia was prepared with a reamer and a keel punch and lug holes. The knee was then brought into extension and the patella was measured as 25mm utilizing the primary fragment of the patella. The superolateral fragment of the bipartite patella was left in place and only lightly debrided around its edge. It was fairly mobile but attached dorsally and therefore I did not disrupt those attachments. Using the patellar clamp and cut guide, this was resected to a flat surface with at least 13mm of thickness remaining. The size 35 patella fit the best. This was oriented and then clamped into position. The lugs were drilled. The trial components were removed. The final components were opened on the back table. The periosteal and capsular tissues, especially posteriorly, around the knee were then systematically injected with a periarticular cocktail consisting of 246mg of Ropivacaine, 0.5mg of Epinephrine, 0.08mg of Clonidine, and 30mg of Ketorolac, diluted to 100cc. On the back table, with the implants opened, the cement was mixed. One batch of high viscosity cement was prepared with vacuum assistance. After the cement was ready a small amount was placed on the cut surface of the patella and the patellar button was clamped into position and held. While the cement was hardening, the cementless knee components were placed. Starting with the tibial component, the tibia was subluxed anteriorly and the lug holes of the component were lined up. The tibia was then impacted with an impactor and mallet until the tibial component was in contact with the tibia. Then, the femoral component was inserted. The lug holes were aligned and the component was impacted into position. The final polyethylene component was inserted. The knee was irrigated with Surgiphor Betadine solution. This was allowed to sit in the knee for 3 minutes and then it was thoroughly irrigated out with saline. After the cement had finally cured, approximately 15min, the clamp was removed from the patella and the knee was taken through range of motion. The patella was tracking with a no-thumbs technique. The capsule was then reapproximated with a No. 1 Vicryl at multiple locations. The capsule was finally closed with a No. 2 Stratafix, barbed suture. Deep tissues were then reapproximated with 0 Vicryl and 2-0 Vicryl. The skin was closed with a running 3-0 Monocryl in a subcuticular fashion. This was reinforced with skin glue. A Mepilex silver dressing was applied along with a [id number] SOLITARIO wrap. A CryoCuff was applied. Daniel was transferred to the hospital bed without difficulty an suffering no apparent complication. Daniel has a good prognosis. Physical therapy will start today and without restrictions, weight-bearing as tolerated. Aspirin 81mg BID will be used for DVT prophylaxis.
== END 2024-09-18 17:15 | disposition home or self-care (01) ==
LOC: SUR 09:55
PROVIDERS: PCP Nurse Practitioner Family; Visit Provider Student in an Organized Health Care Education/Training Program
PROC: (CPT 27447; principal; 2024-09-18 12:45)
DX: M17.12 Unilateral primary osteoarthritis, left knee (principal); Z96.652 Presence of left artificial knee joint; N40.1 Benign prostatic hyperplasia with lower urinary tract symptoms; G89.18 Other acute postprocedural pain
CPT/HCPCS: 20985; 27447; 64447; 76942; 97162; 97530; C1776; J0171; J0665; J0690; J1100; J2250; J2371; J2401; J2405; J2704

== ENCOUNTER 2024-10-03 15:16 | Outpatient (CLI) | payer MEDICARE, BC, SELFPAY ==
--- NOTE | 2024-10-03 10:30 | DI.RAD_ITS ---
Exam(s) XR KNEE LT 1V XR STANDING ALIGNMENT EXAM: XR STANDING ALIGNMENT and XR knee LT 1 V CLINICAL HISTORY: 1ST POST OP L TKA. TECHNIQUE: 2D digital imaging was performed. Five images were obtained. COMPARISON: CR XR KNEE RT 1V from 05/27/2024 CR XR STANDING ALIGNMENT from 05/27/2024 CR XR KNEE LT 1V from 05/27/2024 CR XR KNEE LT 1V from 10/03/2024 FINDINGS: BONES: The hips are well maintained. The patient now has a left total knee require throw plasty whic h appears in good position. No suspicious lucencies are seen around the hardware. In the right knee , there again seen marked degenerative changes characterized by joint space narrowing and osteophytes . The findings are most marked medially. Chondrocalcinosis is present. The ankles are well maintai bernadette.The left lower extremity is 2.0 cm longer than the right lower extremity. SOFT TISSUE: Normal. IMPRESSION: 1. Interval placement of a left total knee arthroplasty. 2. Marked degenerative changes in the right knee. DATA REPOSITORY: RADIATION DOSE DELIVERED:
== END 2024-10-03 15:17 | disposition home or self-care (01) ==
LOC: DIORS 15:16
PROVIDERS: PCP Nurse Practitioner Family; Referring Provider Nurse Practitioner Family; Visit Provider Student in an Organized Health Care Education/Training Program
DX: Z96.652 Presence of left artificial knee joint (principal); Z47.1 Aftercare following joint replacement surgery
CPT/HCPCS: 99024; 73560; 77073

== ENCOUNTER → 2024-10-31 09:45 | Outpatient (BNVA) | payer MEDICARE, BC, SELFPAY | PROVIDERS: PCP Nurse Practitioner Family | DX: Z47.1 Aftercare following joint replacement surgery (principal); Z96.652 Presence of left artificial knee joint | CPT/HCPCS: 99024 ==

== ENCOUNTER 2024-11-05 08:27 | Day surgery (SDC) | payer MEDICARE, BC, SELFPAY ==
--- NOTE | 2024-11-04 18:10 | ANES.PREOP_ITS ---
General Info Date of Service Date Performed: 11/05/24 Height: 5 ft 7 in Weight: 68.095 kg Body Mass Index (BMI): 23.5 Surgical Procedure: Operation Date: 11/05/24 11:10 Proposed Procedure Side Surgeon p Knee Total Arthroplasty w/OrthAlign, Cementless CR Right Molina Colin MD Meds Allergies and Home Medications Allergies Allergy/AdvReac Type Severity Reaction Status Date / Time No Known Allergies Allergy Verified 11/05/24 08:58 Home Medication ?Medication ?Instructions ?Recorded acetaminophen 500 mg tablet 1,000 mg (2 x 500 mg) PO Q8H PRN 11/05/24 pain #90 tabs acetaminophen 650 mg 650 mg PO ONCE 11/05/24 tablet,extended release aspirin 81 mg tablet,delayed 81 mg PO BID 30 days #60 tabs 11/05/24 release celecoxib 200 mg capsule (Celebrex) 200 mg PO BID PRN #60 caps 11/05/24 dexamethasone 4 mg tablet 4 mg PO DAILY #2 tabs 11/05/24 docusate sodium 100 mg capsule 100 mg PO BID #30 caps 11/05/24 (Colace) gabapentin 300 mg capsule 300 mg PO QHS #14 caps 11/05/24 oxycodone 5 mg tablet 5 mg PO Q4H PRN #18 tabs 11/05/24 pantoprazole 40 mg tablet,delayed 40 mg PO DAILY #14 tabs 11/05/24 release Current Visit Medications: Current Medications Generic Name Dose Route Start Last Admin Trade Name Freq PRN Reason Stop Dose Admin Acetaminophen 1,000 mg 11/05/24 06:00 Acetaminophen 500 Mg Tab PO 11/05/24 23:59 PREOP SONYA Celecoxib 400 mg 11/05/24 06:00 Celecoxib 200 Mg Cap PO 11/05/24 23:59 PREOP SONYA Gabapentin 300 mg 11/05/24 06:00 Gabapentin 300 Mg Cap PO 11/05/24 23:59 PREOP SONYA Ringer's Solution 1,000 mls @ 80 mls/hr 11/05/24 06:00 IV 11/05/24 23:59 INFUSION SONYA Cefazolin Sodium/Dextrose 2 gm in 50 mls @ 100 mls/hr 11/05/24 06:00 Ancef Duplex IVPB 11/05/24 23:59 PREOP SONYA Ringer's Solution 500 mls @ 80 mls/hr 11/05/24 06:00 IV 11/05/24 23:59 INFUSION SONYA Tranexamic Acid 1,000 mg/ 110 mls @ 660 mls/hr 11/05/24 06:00 Sodium Chloride IVPB 11/05/24 23:59 PREOP SONYA IV Miscellaneous Supplies 1 each 11/05/24 06:00 Iv Access IV 11/05/24 23:59 DIRECTED SONYA Sodium Chloride 0 ml 11/05/24 06:00 Normal Saline Flush 10 Ml Syr IV 11/05/24 23:59 PRN PRN Sodium Chloride 0 ml 11/05/24 06:00 Normal Saline 10 Ml Vial IJ 11/05/24 23:59 DIRECTED PRN Sterile Water 0 ml 11/05/24 06:00 Water,Injection,Sterile 10 Ml Vial IJ 11/05/24 23:59 DIRECTED PRN PFSH Active Problems Active Problems: Problem Status Onset Code History of total left knee replacement Acute 09/18/24 Z96.652 Abnormal digital rectal exam Acute R68.89 Osteoarthritis of right knee Acute M17.11 Encounter for annual physical exam Acute Z00.00 BPH w/o urinary obs/LUTS Acute N40.0 Acquired trigger finger Acute 10/26/06 M65.30 Medical History Medical History Elevated BP without diagnosis of hypertension Osteoarthritis of knee Generalized osteoarthrosis (10/26/09) mild DJD left knee Malignant neoplasm of skin Surgical History Surgical History History of bilateral inguinal hernia repair History of skin surgery Skin Cancer Removal (~1995) Harish's surgery for BCCA Repair of inguinal hernia (~2006) B/L Colonoscopy - MAC 2010;NEG Tobacco Smoking/Tobacco Use Status: Former Tobacco Use Passive smoking exposure: No Second hand exposure: Yes Alcohol Alcohol Intake: current Alcohol intake frequency: a few times a week Alcohol typ e: beer Substance Use Substance use: Never Substance use type: former substance user Vital Signs and Lab Results Vital Signs Most Recent Vital Signs in EMR: Temp Pulse Resp BP Pulse Ox 36.5 C 77 12 170/81 H 100 11/05/24 09:26 11/05/24 09:26 11/05/24 09:26 11/05/24 09:26 11/05/24 09:26 Lab Results Blood Type / Crossmatch: No Data to Display Complete Blood Count: No Data to Display Complete Metabolic Panel: No Data to Display Liver Function Panel: No Data to Display Coagulation Panel: No Data to Display Cardiac Panel: No Data to Display Arterial Blood Gas: No Data to Display Venous Blood Gas: No Data to Display Pancreas Panel: No Data to Display Thyroid Panel: No Data to Display Infectious Disease: No Data to Display Blood Cultures: No Data to Display Toxicology Panel: No Data to Display Anesthesia Assessment and Plan Anesthesia History Personal History: No History of Anesthesia Complications Family History: No Family History of Anesthesia Complications Exercise Tolerance Exercise Tolerance: Metabolic Equivalents>4 Pertinent Negatives Pertinent Negatives: No Symptoms of GERD, No Major Cardiovascular Symptoms or Complaints, No Major Pulmonary Symptoms or Complaints and No History of CVA/TIA Cardiac & Pulmonary Exam Cardiac Exam: Normal S1/S2 Heart Sounds Pulmonary Exam: Clear Bilateral Breath Sounds Implantable Cardiac Device Does patient have a Pacemaker or an ICD?: No Airway Exam Known Difficult Airway: No Mallampati Class: 2 Mouth Opening: Normal (> 3cm) Thyromental Distance: Greater than 3 cm Neck Range of Motion: Full ROM Neck Circumference: Normal Teeth Condition: Normal Dentition ASA Classification ASA Score: ASA 2 Emergency Case?: No NPO Status NPO Status: NPO Clears >2 hours, Solids >8 hours Anesthesia Plan Resuscitation Status: Full Code Anesthesia Technique: Spinal Anesthesia Airway Planned: Natural Airway Pain Management: Surgeon and patient request nerve block Monitors Used: Standard Monitors Preoperative Comments:: 74 yo male for TKA. Sig PMHx: HTN (on no meds, does check his BP at home states that he runs 130- 150), former smoker, occ EtOH. no home meds. Previous Anes: - TKA, spinal 2 attempts, chloro, prop sedation, no issues. block with no midaz, 10 mL 0.25%.
[2024-11-05] VITALS (9 sets, daily range): BP systolic 103–196; BP diastolic 47–95; PULSE 75–93; RESP 12–18; TEMP 36–36.6; O2SAT 95–100; BMI 23.5
--- NOTE | 2024-11-05 07:26 | W.PM.DSUDISC ---
Date of service: 11/05/24 Discharge Plan Disposition Patient Disposition: Home Condition: Good Discharge Details Reason For Visit: Right knee DJD Attending Provider: Molina Colin Primary Care Provider: Amari Chambers Home Meds and New Rx's Prescriptions: New celecoxib [Celebrex] 200 mg capsule 200 mg PO BID PRNQty: 60 0RF Rx Instructions: Take one tablet twice daily for pain and inflammation aspirin 81 mg tablet,delayed release (DR/EC) 81 mg PO BID 30 Days Qty: 60 0RF acetaminophen 500 mg tablet 1,000 mg PO Q8H PRN Qty: 90 0RF Rx Instructions: Take two tablets up to every 8 hours as needed for pain pantoprazole 40 mg tablet,delayed release (DR/EC) 40 mg PO DAILY Qty: 14 0RF dexamethasone 4 mg tablet 4 mg PO DAILY Qty: 2 0RF Rx Instructions: Take one tablet once daily for two days docusate sodium [Colace] 100 mg capsule 100 mg PO BID Qty: 30 0RF gabapentin 300 mg capsule 300 mg PO QHS Qty: 14 0RF Rx Instructions: Take one tablet at bedtime oxycodone 5 mg tablet 5 mg PO Q4H PRNQty: 18 0RF Rx Instructions: Take one tablet up to every 4 hours as needed for severe postoperative pain Discharge Instructions Additional Instructions: Total Knee Discharge Instructions Activity: The most important activity is to walk and to work on gentle motion (both flexion and extension). You should try to take short walks a few times a day. It is important that when resting you work on keeping the knee straight. Avoid putting a pillow behind the knee as this will encourage flexion. Work on range of motion exercises as provided by Physical Therapy. - Start outpatient physical therapy within 2 weeks. - You should wear the AVELINO hose on both legs for 2 weeks. You may remove these at night. You may also use any compression sock in place of the AVELINO hose. - Utilize [employer] to review exercises, see videos on exercises and obtain basic information pertaining to your surgery and your recovery. Dressing: Remove the Yan wrap by 2 days after your surgery and put on the AVELINO stocking given to you from the hospital. Keep the surgical dressing (underneath the YAN wrap) in place for at least one week. After the first week it may be removed and replaced with light gauze and tape or nothing. The wound and dressing may get wet after 3 days but avoid soaking the dressing or otherwise it will need to be changed. Many people prefer covering the dressing with cling wrap (saran wrap) to minimize it from getting soaked. If it gets wet, just pat dry. If it starts to peel off then it will need to be changed. Medications: - You should take Tylenol and anti-inflammatory Celebrex as your primary pain control medications. If the Celebrex is too expensive or not covered, please call the office for another alternative (Advil/Ibuprofen or Naproxen/Aleve) - You have been prescribed a stronger pain medication Oxycodone for breakthrough pain, take as needed as prescribed. - You have also been prescribed a stomach acid reduction agent Pantoprozole to help reduce stomach acid and reflux. - You have been prescribed Gabapentin to take at night for restlessness and nerve pain. - You will be taking Aspirin 81mg twice a day for DVT prevention unless instructed otherwise. - You have also been prescribed Decadron to take to control post-operative nausea and pain. You will start this tomorrow. - If you have constipation you should take Colace (which has been prescribed) or Miralax (which is available [id number]). It takes most people 3-4 days to have a bowel movement. Follow-up: 2 weeks If you have any acute concerns or questions, please do not hesitate to contact the office at [phone]. You may contact Dr. Colin with any questions after hours through the hospital at [phone] or on his cell phone at [phone]. Referrals: Molina Colin MD [ [facility] STAFF PHYSICIAN] - Equipment/Supplies: Walker Activity:: Elevate Remove Dressings/Wound Care:: Do Not Remove Shower/Bathe:: Cover Diet:: As Tolerated Discharge Orders Discharge Orders: Discharge Order (Routine); Ordered 11/05/24 Ordered By: Daphne Sánchez
[2024-11-05] MEDS: Normal Saline 500 ML 30 ML IV (09:02)
[2024-11-05] MEDS: Gabapentin 300 MG CAP PO (09:05)
[2024-11-05] MEDS: Acetaminophen 500 MG TAB 1000 MG PO (09:06)
[2024-11-05] MEDS: Celecoxib 200 MG CAP 400 MG PO (09:07)
--- NOTE | 2024-11-05 09:47 | ANES.NERVE_ITS ---
Nerve Block Single Injection Procedure Date and Time Date Performed: 11/05/24 Procedure Start: 09:30 Location Where Procedure Performed Procedure Location: Day Surgery Unit Reason Performed: Postoperative Analgesia Requesting Provider: Molina Colin Timeout Performed Timeout Performed: Yes Monitoring Used ECG, Blood Pressure and SpO2 Sterility Sterility: Hand Hygiene, Surgical Cap, Surgical Mask, Sterile Gloves and Chlorhexidine Sedation Given During Procedure Sedation Given (Indicate Dose Given): No Sedation given Patient Mental Status Patient Mental Status: Awake Nerve Block 1st Nerve Block: Laterality: Right Block Type: Adductor Canal Ultrasound Image Saved?: Yes Needle / Catheter Used: 100mm SonoPlex II Local Anesthetic Bolus (Indicate Dose Given): Lidocaine used for local infiltration of skin, Injected in 3-5ml increments after negative blood aspiration and Bupivacaine 0.25% Dose:: 10 mL Additives (Indicate Dose Given): None Ultrasound: Sterile probe cover and gel used Nerve Stimulator: Supplement to Ultrasound use and No twitch or parast hesia noted < 0.5 mA Paresthesia: None Procedure Tolerated: No Complications Procedure Outcome: Successful Performed By: Savage Gunn Supervised By: Miquel Tomas
[2024-11-05] MEDS: ceFAZolin 2 GM/50 ML BAG IVPB (10:25)
--- NOTE | 2024-11-05 11:46 | ROE_ITS ---
Operative Note Operative Note PRE-OP DIAGNOSIS: Right Knee Osteoarthritis POST-OP DIAGNOSIS: same PROCEDURE: Right Total Knee Replacement with Intraoperative Navigation SURGEON: Molina Colin BIOLOGIST: Daphne Sánchez ANESTHESIA TYPE: Spinal Refer to Anesthesia Record ESTIMATED BLOOD LOSS: 100 PATHOLOGY: none sent TOURNIQUET TIME: 0 COMPLICATIONS: None Patient was transported to: PACU Patient's condition: stable Implants: 1. Depuy Attune Cementless Cruciate Retaining Femoral Component, Size 8 2. Depuy Attune Cementless Fixed Bearing Tibial Component, Size 6 3. Depuy Attune 8x7mm CR/FB Poly 4. Depuy Attune Patellar Component, Size 38 Indications: I have seen Daniel in clinic for symptoms of RIGHT knee arthritis, confirmed with radiographic findings. He has exhausted nonoperative methods and was having significant limitations in daily function and desired better function and less pain. I discussed the technical details of a knee replacement. He had a successful replacement on the left side. I explained the risks of the procedure to include, but not limited to, bleeding, infection, pain, stiffness, fracture, damage to nerves and vessels, damage to muscles and tendons, loosening, need for repeat procedure, blood clot and cardiopulmonary demise. Despite these risks, Daniel elected to proceed. Findings: There was significant signs of arthritis throughout the knee with notable tibial varus disease. Procedure Description: Daniel was greeted in the preoperative holding area where the correct side was identified and marked. The consent was reviewed with the patient and signed. The history and physical was updated. All questions were answered. Preoperative mediacations were administered: Acetaminophen 1000mg, Celebrex 400mg, and Gabapentin 300mg. An adductor canal block was then administered by the anesthesia team in the DSU. He was taken back to the operating room. A spinal anesthestic was then administered. The patient was placed into the supine position on the operating room table. Posts were placed for positioning during the procedure. All bony prominences were well padded. Prophylactic antibiotics in the form of Cefazolin were administered. 1g of Tranxemic Acid was given intravenously within 30 minutes of incision. The right leg was then prepped with Chloraprep and draped in a standard fashion with impervious stockinette. A second prep with Chloraprep was performed prior to application of Iodine impregnated skin protection. A timeout to confirm correct identity, side and site, procedure, allergies, anesthesia, and medical concerns was performed. With the knee in some flexion, a midline incision was made overlying the knee. Full thickness skin flaps were raised once the extensor mechanism was encountered. These were raised medially and laterally. Any bleeding was controlled with electrocautery. Once the extensor mechanism was fully exposed, a medial parapatellar arthrotomy was performed in a flexed position. All bleeding from the arthrotomy and the geniculate arteries was coagulated. A medial subperiosteal peel was performed with electrocautery to the midcoronal plane. Due to the significant varus deformity the entire medial tibial plateau was exposed. The fat pad was removed while keeping the patellar tendon protected. The anterior distal femur synovium was removed for later visualization. The ACL and PCL were resected and the anterior horn of the lateral meniscus was transected. The knee was then flexed with the patella everted. Large osteophytes from the tibia were removed. Large osteophytes from the femur were removed. A single starting pin was then placed 1cm anterior to the PCL insertion and the notch in the direction of the femoral head. The OrthoAlign device was applied over the pin. It was oriented to be in line with the epicondylar axis and the trochlear groove. It was then pinned into place. The navigation computer was then turned on and calibrated. The distal femur cut was set at 0.5 degrees [place] and 3.5 degrees flexion. The distal femur cutting guide then was positioned for a 9mm cut. The distal femur was cut with an oscillating saw while protecting the soft tissues. The tibia was then addressed. The OrthoAlign device was placed over the tibial tubercle and medial tibia and secured into position. Once again, OrthoAlign was calibrated and then set for a 1.5 degree varus cut and 5 degrees of posterior slope. With this locked into position, the cut thickness stylus was used to assess cut thickness. The medial side, most involved side, was set for a 3mm cut. This was then held in position and pinned into place with 2 additional pins and a cross pin for stability. The medial and lateral collateral ligaments were protected and the cut was performed. With this completed, it was assessed and noted to be of appropriate dimensions. The guide and OrthoAlign was removed. A spacer block was inserted and the knee was brought into extension to ensure enough space was present. . The Orthoalign gap balancing device was then placed in extension. This was used to ensure that the ligaments were properly balanced with up to 2 to 3 mm laxity laterally compared medially. The extension gap was measured as 20mm. The knee was then brought into 90 degrees of flexion and the ligament warehouse distribution associate was once again placed. Under the same amount of force the flexion gap was measured. The Attune specific jig was placed and the flexion gap was made to match the extension gap. The femur was then sized as a size 8. The 4-in-1 cutting guide was the placed. An fab wing was used to confirm appropriate position of the anterior cut to avoid notching. This cutting guide was ensured to be flush on the cut surface and then pinned into place with headed pins. While protecting the soft tissues, quad tendon, and collateral ligaments, the anterior and posterior cuts were performed with a saw. The central two pins were removed and the posterior and anterior chamfers were cut next. The notch-cutting guide was placed. This was pinned to lateralize the femoral component as much as possible while keeping it flush on the cut surface. This was then pinned into position. A saw was used to make the notch cut. A rasp smoothed the cut surfaces. The medial and lateral menisci were removed. A trial femoral component was then inserted, impacted down to the cut surfaces, and the lug holes were drilled. A provisional trial tibial component was placed and the knee was brought through range of motion. There was noted to be excellent extension and flexion. There was no significant instability. The patella was tracking without thumbs. A size 7mm polyethylene component provided the best range of motion and stability with less than 2mm gapping with medial and lateral stress and full extension without significant hyperextension. The tibial cut surface was fully exposed. The tibia was then sized as a 6. The tibia had been previously marked during trialing to correspond to the center of the tibial component to help with rotation. The trial was aligned to this jaime, approximately rotated to the medial 1/3rd of the tibial tubercle. The trial was pinned into place. The tibia was prepared with a reamer and a keel punch and lug holes. The knee was then brought into extension and the patella was measured as 28mm. Using the patellar clamp and cut guide, this was resected to a flat surface with at least 13mm of thickness remaining. The size 38 patella fit the best. This was oriented and then clamped into position. The lugs were drilled. The trial components were removed. The final components were opened on the back table. The periosteal and capsular tissues, especially posteriorly, around the knee were then systematically injected with a periarticular cocktail consisting of 246mg of Ropivacaine, 0.5mg of Epinephrine, 0.08mg of Clonidine, and 30mg of Ketorolac, diluted to 100cc. On the back table, with the implants opened, the cement was mixed. One batch of high viscosity cement was prepared with vacuum assistance. After the cement was ready a small amount was placed on the cut surface of the patella and the patellar button was clamped into position and held. While the cement was hardening, the cementless knee components were placed. Starting with the tibial component, the tibia was subluxed anteriorly and the lug holes of the component were lined up. The tibia was then impacted with an impactor and mallet until the tibial component was in contact with the tibia. Then, the femoral component was inserted. The lug holes were aligned and the component was impacted into position. The final polyethylene component was inserted. The knee was irrigated with Surgiphor Betadine solution. This was allowed to sit in the knee for 3 minutes and then it was thoroughly irrigated out with saline. After the cement had finally cured, approximately 15min, the clamp was removed from the patella and the knee was taken through range of motion. The patella was tracking with a no-thumbs technique. The capsule was then reapproximated with a No. 1 Vicryl at multiple locations. The capsule was finally closed with a No. 2 Stratafix, barbed suture. Deep tissues were then reapproximated with 0 Vicryl and 2-0 Vicryl. The skin was closed with a running 3-0 Monocryl in a subcuticular fashion. This was reinforced with skin glue. A Mepilex silver dressing was applied along with a [id number] SOLITARIO wrap. A CryoCuff was applied. Daniel was transferred to the hospital bed without difficulty an suffering no apparent complication. He has a good prognosis. Physical therapy will start today and without restrictions, weight-bearing as tolerated. Aspirin 81mg BID will be used for DVT prophylaxis. Date of Procedure: 11/05/24
--- NOTE | 2024-11-05 12:25 | W.ANESPOSTOP ---
Postoperative Evaluation Date, Time and Location Date Performed: 11/05/24 Time Performed: : Patient Location: PACU Vital Signs Most Recent Imported Vital Signs: Most Recent Vital Signs Temp Pulse Resp BP Pulse Ox 36.5 C 77 12 170/81 H 100 11/05/24 09:26 11/05/24 09:26 11/05/24 09:11/05/24 09:11/05/24 09: Pain Score Most Recent Pain Score: Most Recent Pain Score Pain Level 0 11/05/24 09:26 Assessment Mental Status: Awake (Alert & Oriented to Patient Baseline) Airway and Respiratory Function: Patent airway with normal (patient baseline) respiratory exam Cardiovascular Function: Hemodynamically Stable Hydration Status: Adequately Hydrated Nausea & Vomiting: No Nausea or Vomiting Pain: Pain is tolerable per patient Peripheral Nerve Block: Regional nerve block not resolved at time of post operative discharge
--- NOTE | 2024-11-05 14:02 | IN_ITS ---
PT Notes Visit Reasons: Right knee DJD Physical Therapy Day Surgery Initial Evaluation Date: 11/05/2024 Referring Doctor: Dr. Colin PT Orders: PT CONSULT: S/p Ortho surgery Precautions: WBAT RLE, activity as tolerated,TEDs x 2 weeks Patient Profile/Admitting Diagnosis: Patient is 74-year-old male presenting status post elective right TKA on 11/05/2024 under spinal anesthesia. Postop uncomplicated. Of note patient is 6 weeks status post left TKA. PMHX: Status post left TKA 09/18/2024, BPH, trigger finger Social History/Home Situation: Patient resides in two-story home with 2 separate platform steps to enter without rail. Patient has 8 steps then a landing then 7 steps to his second floor. He reports he will be staying on the first floor. His is able to assist with transportation and meals however will be having medical treatment in the near future which may limit her ability to assist him. Patient independent ambulation without a device. Patient independent ADLs, medication management. Patient drives. Equipment Owned/DME: [facility] Subjective: Patient reports he is feeling okay. He states he is still going to rehab for his left knee which she had replaced 6 weeks ago. He reports his biggest struggle is tight hamstrings. Patient reports he only used the [facility] for 3 to 4 days after last surgery. Objective: General Observation: Patient presented semireclined in stretcher with Cryo/Cuff to right knee. present throughout session Mental Status: Alert and oriented x 4, motivated, cooperative Pain: Right knee 2/10 ROM: Right Upper Extremity: WFL Left Upper Extremity: WFL Right Lower Extremity: Hip and ankle WFL, knee AROM 8?105, tight hamstrings noted limiting knee extension with hip flexion Left Lower Extremity: Hip and ankle within functional limits, knee 5?112 AROM, tight hamstrings noted limiting knee extension with hip flexion Strength: Right Upper Extremity: 5/5 Left Upper Extremity: 5/5 Right Lower Extremity: Hip flexion: 3 -/5; hip abduction: 2+/5; hip extension: 3 -/5; knee extension: 3 -/5; knee flexion: 3 -/5 ankle DF: 3/5 ; ankle PF: 3/5. Patient demonstrates use of glutes and hamstring for compensation for quad set. Patient requires cues to facilitate quad set without compensation. Patient with shortened hamstring length limiting knee extension during reduced range SLR positive quad lag Left Lower Extremity: Quad 4/5 with lag noted, impaired TKE, hamstring 4/5, PF 4/5 Sensation: Intact Bed Mobility/Transfers: Supine to sit independent Sit to stand independent Stand to sit independent Bed to chair supervision with FWW Gait:Patient ambulated with FWW level surfaces 200 feet with supervision demonstrating reciprocal pattern with reduced knee flexion on right during swing phase. Excessive lateral weight shift to the left to advance right lower extremity, and early heel off on right Stair: 1 step with FWW to simulate entrance into home standby assist; 2 steps with 1 rail standby assist Balance: Static Sitting: Normal Dynamic Sitting: Good Static Standing: Good Dynamic Standing: Good- Special Tests: Mobility Limitations Standardized Measure [facility]-PAC 6 clicks Basic Mobility Inpatient Short Form: Raw Score: 23 CMS Score: 11.20% Informed Consent/Education: Patient instructed in purpose of PT consult. Packet containing [] exercise protocol has been given to patient. Education and training on initial set of exercises that can be done at home have been completed with patient. Assessment: Patient is a 74-year-old male presents with clinical signs and symptoms consistent with current/admitting diagnoses that have resulted to mobility limitations, gait instability, generalized weakness, and impairment of motor control as demonstrated by the following impairment level findings: 1. Decreased strength to right knee major muscle groups 2. Impaired standing balance 3. Limitation of joint range of motion in right knee 4. Pain right knee 5. Impaired functional activity tolerance and standing Impairments are contributing to the following functional limitations: 1. Inability to safely ambulate without assistive device 2. Increase completion time for mobility ADL performance 3. Increased fall risk 4. Decline in ability to safely perform stairs without assistive device Patient is assessed as a moderate complexity based on the following: History: 74-year-old male with impairment level findings, functional limitations, and past medical history as indicated above Examination: Demonstrable impairment in strength, balance, and mobility level with underlying impairments and functional limitations as documented above Presentation: Stable Decision Making: Moderate Goals: N/A. Plan of Care/Treatment Plan: PT evaluation DISCHARGE RECOMMENDATIONS: Home with outpatient PT as scheduled TREATMENT CODE/TIME: [id number] Thank you for the opportunity to participate in the care of this patient. Shantel Salazar, PT Please sign an return this page within 30 days if you agree with the above POC. Thank you! Physician Signature Date [facility]
[2024-11-05] MEDS: Tranexamic Acid 650 MG TAB 1300 MG PO (14:30)
== END 2024-11-05 14:40 | disposition home or self-care (01) ==
LOC: SUR 08:28
PROVIDERS: PCP Nurse Practitioner Family; Visit Provider Student in an Organized Health Care Education/Training Program
PROC: (CPT 27447; principal; 2024-11-05 11:00)
DX: M17.11 Unilateral primary osteoarthritis, right knee (principal); G89.18 Other acute postprocedural pain; M25.561 Pain in right knee
CPT/HCPCS: 20985; 27447; 64447; 97162; C1776; J0665; J0690; J1100; J2371; J2401; J2405; J2704

== ENCOUNTER 2024-11-21 15:40 | Outpatient (CLI) | payer MEDICARE, BC, SELFPAY ==
--- NOTE | 2024-11-21 10:01 | DI.RAD_ITS ---
Exam(s) XR STANDING ALIGNMENT XR KNEE RT 1V EXAM: XR STANDING ALIGNMENT and XR knee RT 1 V CLINICAL HISTORY: F/U RIGHT TKA. TECHNIQUE: 2D digital imaging was performed. Five images were obtained. COMPARISON: CR XR STANDING ALIGNMENT from 10/03/2024 CR XR KNEE LT 1V from 10/03/2024 FINDINGS: BONES: The hips are well maintained. The patient has had a prior left total knee replacement. Since the prior examination, there has been interval placement of a right total knee arthroplasty. The or thopedic hardware appears in good position. No suspicious lucencies are seen in or around the right arthroplasty. The ankles are well maintained.The right lower extremity is approximately 1 cm shorter than the left lower extremity. SOFT TISSUE: Normal. IMPRESSION: Bilateral total knee arthroplasties. DATA REPOSITORY: RADIATION DOSE DELIVERED:
== END 2024-11-21 15:41 | disposition home or self-care (01) ==
LOC: DIORS 15:40
PROVIDERS: PCP Nurse Practitioner Family; Referring Provider Nurse Practitioner Family; Visit Provider Physician Assistant
DX: Z96.651 Presence of right artificial knee joint (principal); Z47.1 Aftercare following joint replacement surgery
CPT/HCPCS: 99024; 73560; 77073

== ENCOUNTER → 2024-12-19 09:14 | Outpatient (BNVA) | payer MEDICARE, BC, SELFPAY | PROVIDERS: PCP Nurse Practitioner Family; Visit Provider Student in an Organized Health Care Education/Training Program | DX: Z47.1 Aftercare following joint replacement surgery (principal); Z96.653 Presence of artificial knee joint, bilateral | CPT/HCPCS: 99024 ==

== ENCOUNTER 2024-12-31 00:51 | Outpatient (CLI) | payer MEDICARE, BC, SELFPAY ==
[2024-12-31 12:41] LABS: Anion Gap 8.4 mmol/L (3-11); BUN 12 mg/dL (7-18); CO2 28.6 mmol/L (21.0-32.0); CREATININE 0.9 mg/dL (0.70-1.30); Calcium 9.8 mg/dL (8.5-10.1); Calculated LDL 94 mg/dL (<100); Chloride 100 mmol/L (98-107); Cholesterol 185 mg/dL (<200); Estimated GFR 88.51 (mL/min/1.73m2); Glucose 117 mg/dL (74-106); HDL Cholesterol 70 mg/dL (40-60); Potassium 3.8 mmol/L (3.5-5.1); Sodium 137 mmol/L (136-145); Triglyceride 108 mg/dL (<150)
[2024-12-31 13:08] LABS: COMMENT (LAB VIEW ONLY) 68.69 mg/dL; Microalb ug/mg Crea 6.4 ug/mg Cr
[2024-12-31 18:48] LABS: PSA, Diagnostic 2.2 ng/mL (<=6.5)
== END 2024-12-31 00:52 | disposition home or self-care (01) ==
PROVIDERS: PCP Nurse Practitioner Family; Visit Provider Nurse Practitioner Family
DX: R03.0 Elevated blood-pressure reading, without diagnosis of hypertension (principal); N40.0 Benign prostatic hyperplasia without lower urinary tract symptoms; R68.89 Other general symptoms and signs; E78.5 Hyperlipidemia, unspecified
CPT/HCPCS: 36415; 80048; 80061; 82043; 82570; 84153

== ENCOUNTER → 2025-01-30 09:05 | Outpatient (BNVA) | payer MEDICARE, BC, SELFPAY | PROVIDERS: PCP Nurse Practitioner Family; Visit Provider Student in an Organized Health Care Education/Training Program | DX: Z47.1 Aftercare following joint replacement surgery (principal); Z96.651 Presence of right artificial knee joint | CPT/HCPCS: 99024 ==

== ENCOUNTER → 2025-08-25 08:39 | Outpatient (BNVA) | payer MEDICARE, BC, SELFPAY | PROVIDERS: PCP Nurse Practitioner Family; Referring Provider Nurse Practitioner Family; Visit Provider Student in an Organized Health Care Education/Training Program | DX: T84.84XA Pain due to internal orthopedic prosthetic devices, implants and grafts, initial encounter (principal); M23.8X1 Other internal derangements of right knee; Z96.653 Presence of artificial knee joint, bilateral | CPT/HCPCS: 99213 ==

== ENCOUNTER → 2025-11-04 14:20 | Outpatient (BNVA) | payer MEDICARE, BC, SELFPAY | PROVIDERS: PCP Nurse Practitioner Family; Referring Provider Nurse Practitioner Family; Visit Provider Nurse Practitioner Gerontology | DX: N40.0 Benign prostatic hyperplasia without lower urinary tract symptoms (principal); R68.89 Other general symptoms and signs | CPT/HCPCS: 99213 ==

== ENCOUNTER 2025-11-10 11:16 | Outpatient (CLI) | payer MEDICARE, BC, SELFPAY ==
--- NOTE | 2025-11-10 08:45 | DI.RAD_ITS ---
Exam(s) XR KNEE LT 2V AP,LAT EXAM: XR KNEE LT 2V AP,LAT CLINICAL HISTORY: ANNUAL F/U L TKA. TECHNIQUE: 2D digital imaging was performed. Two images were obtained. AP and lateral views were obtained. COMPARISON: CR XR KNEE RT 3V AP,LAT,IRIS from 07/23/2021 CR XR STANDING ALIGNMENT from 10/03/2024 CR XR KNEE LT 1V from 10/03/2024 CR XR KNEE RT 1V from 11/21/2024 CR XR STANDING ALIGNMENT from 11/21/2024 FINDINGS: BONES: There are stable post operative changes of a left total knee arthroplasty present. No fracture or dislocation. There is stable deformity of the patella. JOINTS: The orthopedic hardware is in good position. No evidence of hardware loosening. SOFT TISSUE: Normal. IMPRESSION: Stable left total knee arthroplasty. DATA REPOSITORY: RADIATION DOSE DELIVERED:
--- NOTE | 2025-11-10 08:45 | DI.RAD_ITS ---
Exam(s) XR KNEE RT 2V AP,LAT EXAM: XR KNEE RT 2V AP,LAT CLINICAL HISTORY: ANNUAL F/U R TKA. TECHNIQUE: 2D digital imaging was performed. Two images were obtained. AP and lateral views were obtained. COMPARISON: CR XR STANDING ALIGNMENT from 10/03/2024 CR XR STANDING ALIGNMENT from 11/21/2024 CR XR KNEE RT 1V from 11/21/2024 FINDINGS: BONES: There are post operative changes of a right total knee arthroplasty present. No fracture or dislocation. JOINTS: The orthopedic hardware is in good position. There is now lucency seen beneath the patellar component of the arthroplasty suspicious for loosening. The femoral and tibial components are unremarkable. SOFT TISSUE: Normal. IMPRESSION: Findings concerning for loosening of the patellar component of the right total knee arthroplasty. DATA REPOSITORY: RADIATION DOSE DELIVERED:
== END 2025-11-10 11:17 | disposition home or self-care (01) ==
LOC: DIORS 11:16
PROVIDERS: PCP Nurse Practitioner Family; Referring Provider Nurse Practitioner Family; Visit Provider Physician Assistant
DX: Z47.1 Aftercare following joint replacement surgery (principal); Z96.653 Presence of artificial knee joint, bilateral; M23.8X1 Other internal derangements of right knee; T84.84XA Pain due to internal orthopedic prosthetic devices, implants and grafts, initial encounter
CPT/HCPCS: 99213; 73560